=== PATIENT | male | born 1930 | race Caucasian/White ===

== ENCOUNTER 2016-09-12 15:45 | Inpatient (IN) | payer MEDICARE ==
[~2016-09-12] VITALS: Ht 180.3 cm; Wt 108.0 kg
[2016-09-14] MEDS ORDERED: LASIX DPS20 MG PO (13:49)
[2016-09-14] MEDS ORDERED: PROSCAR DPS5 MG PO (13:49)
[2016-09-14] MEDS ORDERED: TERAZOSIN10 MG PO (13:49)
[2016-09-14] MEDS ORDERED: PROTONIX40 MG PO (13:49)
[2016-09-14] MEDS ORDERED: VITAMIN D1000 UNI1 PO (13:50)
[2016-09-14] MEDS ORDERED: ZOCOR DPS20 MG PO (13:50)
[2016-09-14] MEDS ORDERED: IRON325 M1 PO (13:51)
[2016-09-14] MEDS ORDERED: [UNRECOGNIZED DRUG - OTHER] OU (13:51)
--- NOTE | 2016-09-17 08:46 | CO ---
ADMIT: 09/12/2016 RM/LOC: 414 [facility] MR#: [id number] [address] [facility] [address] [place], [place] [id number] OZZY YBARRA [facility] [address] [place] [address] Consultation SEX: M AGE: 86 : 1930 DATE OF CONSULTATION: 09/12/2016 ATTENDING PHYSICIAN: Michael Chase CONSULTING PHYSICIAN: Nate Trinidad MD PROBLEM: Gross hematuria. HISTORY OF PRESENT ILLNESS: This 86-year-old gentleman was transferred to the emergency room at [facility] by the [facility] for evaluation of gross hematuria. Approximately 1 week ago, he underwent cystoscopy and since then has had gross painless hematuria. He underwent repeat cystoscopy today which did reveal obstructive trilobar prostatic enlargement with bladder calculi. According to the patient, in June of this year in the [facility] in [place], an abdominal and pelvic CT scan was performed revealing what sounds to be an abdominal aortic aneurysm along with a renal mass. He is not sure which kidney the mass was on and does not know whether this was a solid or cystic mass. He has had no previous urologic surgery and denies recurrent urinary tract infections. Prior to this, he had been voiding with slight hesitancy and strain to void but no feeling of incomplete emptying. There has been no nausea or vomiting. PAST MEDICAL HISTORY: MEDICATIONS: Please see list. ALLERGIES: HE IS NOT SURE OF. OPERATION: He is not sure of. REVIEW OF SYSTEMS: Please see list. FAMILY HISTORY: Negative for urologic problems. SOCIAL HISTORY: He does not smoke. PHYSICAL EXAMINATION: GENERAL: This is elderly 86-year-old, in no acute distress. HEENT: Unremarkable. NECK: Supple without adenopathy. ABDOMEN: Soft, without masses or tenderness throughout. GENITOURINARY: Penis was normal with an indwelling Hoyos catheter and grossly bloody urine. RECTAL: Deferred. EXTREMITIES: Had full range of motion without deformity. NEUROLOGIC: He is grossly intact. ADMIT: 09/12/2016 RM/LOC: 414 [facility] MR#: [id number] [address] [facility] [address] [place] [phone] OZZY YBARRA [facility] [address] [place] [address] Consultation SEX: M AGE: 86 : 1930 ASSESSMENT: Gross painless hematuria with a history of prostatic enlargement, bladder calculi, and a renal mass, all of which could be the cause of the gross hematuria. PLAN: I would switch the catheter out to a #24-Nigerian, 30 mL, three-way Hoyos catheter and we will place him to continuous bladder irrigation. An abdominal and pelvic CT scan will be obtained with contrast in the morning to help evaluate the upper tracts for renal masses. Thank you for allowing us to assist you in the care of Mr. Ybarra and we will follow along with you. Nate Trinidad MD/ brent JOB #: [id number] CC: Michael Chase, Attending Physician Michael Chase, Family Physician
--- NOTE | 2016-09-18 07:57 | HP ---
ADMIT: 09/12/2016 RM/LOC: 414 [facility] MR#: [id number] 26[address] [facility] [address] [place], [place] [phone] OZZY CARVALHO [facility] [address] [place] [address] History and Physical SEX: M AGE: 86 : 1930 DATE OF SERVICE: CHIEF COMPLAINT: Blood in urine. HISTORY OF PRESENT ILLNESS: The patient is an 86-year-old white male, who is normally followed by [place] [facility]. Over the past week, he has been having a workup for bladder and kidney problems. He states that he had a bladder scope approximately 1 week ago through the [place]. After this bladder scope, he has been having significant hematuria over the past week. When he talked to his [facility] physicians about this, they told him to come in to be seen today. [facility] with complaints of continued heavy hematuria along with dizziness, weakness, and dyspnea on exertion. [facility] the [facility] today and had some blood work done, which showed a hemoglobin of 7.0. His last hemoglobin done about a month ago had been 10. Because of his significant anemia and symptoms of weakness, dizziness, and fatigue, he was sent into the emergency room here at [facility] for evaluation. Apparently, the [facility] [place] [facility] and could not accept this patient in transfer. 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 MEDICATIONS: Current med list include: 1. Acetaminophen 325 mg 2 tabs q.4 hours as needed. 2. Lasix 40 mg alternating with 20 mg daily every other day. 3. Aspirin 81 mg daily. 4. Carboxymethylcellulose 0.5% one drop each eye every 2 hours while awake. 5. Cholecalciferol 2000 units daily. 6. Finasteride 5 mg daily. 7. Mineral oil one drop each eye three times daily as needed. 8. Oxycodone 5 mg one tab q.4 hours as needed. 9. Simvastatin 20 mg daily. 10.Terazosin 10 mg daily. 11.Omeprazole 20 mg daily. 12.Etodolac 400 mg daily as needed. ALLERGIES: PENICILLIN AND IODINATED CONTRAST. PAST SURGICAL HISTORY: The patient has had previous bilateral cataract surgery, pacemaker placement, right total knee replacement, bilateral inguinal hernia repairs, abdominal aortic aneurysm repair, previous appendectomy. SOCIAL HISTORY: The patient currently lives by himself in [place], [place]. He is . He does have a daughter that checks in on him periodically. He is a previous smoker who quit approximately 15 years ago. Occasional alcohol use. Previous employment included shop welder, power plant electrician, and [employer]. ADMIT: 09/12/2016 RM/LOC: 414 [facility] MR#: [id number] [address] [place] [id number] [place] [address] History and Physical SEX: M AGE: 86 : 1930 REVIEW OF SYSTEMS: HEENT: The patient denies visual changes, ear pain, sore throat, or difficulty swallowing. CARDIAC: No chest pains or palpitations at this time. Does have previous history of pacemaker placement and lower extremity edema. RESPIRATORY: No shortness of breath, cough, or wheezing. No prior lung problems. Remote history of smoking. GASTROINTESTINAL: No current nausea, vomiting, abdominal pain, diarrhea, or constipation. GENITOURINARY: Severe hematuria over the past week. Apparently, has had recent evaluation of prostate and bladder. History of enlarged prostate and kidney mass. ENDOCRINE: No history of diabetes or thyroid problems. NEUROLOGIC: No history of strokes or seizures. MUSCULOSKELETAL: Significant history of bilateral knee pain and osteoarthritis, currently no unusual muscle or joint aches and pains. SKIN: Currently no jaundice, cyanosis, or rash. He does have significant pallor to his skin. PHYSICAL EXAMINATION: VITAL SIGNS: Most recent vitals from the [place] include a temperature of 99.4, pulse 68 and regular, respiratory rate 11, blood pressure 140/54, O2 saturations 99% on room air. GENERAL: The patient is alert and oriented. He answers questions appropriately. Does not appear to be in acute distress. HEENT: Wears hearing aids in his ears. Pupils equal, round, and reactive to light and accommodation bilaterally. Oropharynx moist without erythema or tonsillar enlargement. NECK: Supple without lymphadenopathy or JVD. No thyroid enlargement or tenderness. LUNGS: Clear bilaterally without wheezes, rhonchi, or rales. HEART: Regular rate and rhythm without murmur, rub, or gallop. ABDOMEN: Obese, but soft, nontender, and nondistended. No masses palpated. Hoyos catheter in place at this time. EXTREMITIES: With 2+ edema in the lower extremities. Moves all extremities equally. NEUROLOGIC: No focal deficits. LABORATORY AND X-RAY DATA: No labs done here in the hospital at [facility], but he did have some lab done over at the [facility] earlier today. This included a CBC with white count of 5.0, hemoglobin 7.0, platelet count 60. ASSESSMENT: 1. Gross hematuria. 2. Significant anemia (hemoglobin currently 7.0). ADMIT: 09/12/2016 RM/LOC: 414 [facility] MR#: [id number] [address] [place] [phone] OZZY CARVALHO [address] [address] History and Physical SEX: M AGE: 86 : 1930 3. History of prostate enlargement. 4. History of renal mass. 5. Bilateral lower extremity edema. PLAN: Hoyos catheter is currently in place. Urology consult has been placed and Dr. Trinidad has seen this patient in consultation. We will transfuse 2 units of packed red blood cells and follow his hemoglobin closely. We will also check a serum iron as there is an apparent history of iron deficiency and patient is not currently on iron. We will plan on heme testing his stools due to his anemia. Dr. Trinidad of Urology plans to do continuous bladder irrigation and will also plan on a CT scan of the abdomen and pelvis to be done tomorrow. Michael Chase MD/ brent JOB #: [id number] CC: Michael Chase, Attending Physician Michael Chase, Family Physician
--- NOTE | 2016-09-21 18:52 | ER ---
ADMIT: 09/12/2016 RM/LOC: 414 [facility] MR#: [id number] 26[address] [facility] [address] [place], [place] [phone] DEVEN, OZZY LARRY [facility] [address] [place] [address] Emergency Room Report SEX: M AGE: 86 : 1930 DATE: 09/12/2016 ADDENDUM: HISTORY OF PRESENT ILLNESS: This patient comes to the ER from the [facility]. He went to the [facility] today because he was short of breath and it has been for the last 2 days. He states he had some kind of a urologic procedure done a week ago and now has a catheter and has a lot of blood in the catheter. When he went to the [facility] today, they checked his hemoglobin and it was 7.0. He denies any cough and really denies any abdominal pain, only complaint is weakness. PHYSICAL EXAMINATION: LUNGS: Clear. ABDOMEN: Soft. VITAL SIGNS: His O2 saturation is 98% on room air. GENITOURINARY: He does have a leg bag with bright red blood in the bag. Hemoccult was negative for blood. IV of normal saline was started. He was given a liter of bolus. I typed and crossed for 2 units. I did have the blood work from the [facility] that showed the hemoglobin was 7, and a normal CMP. I did consult with Dr. Chase, who is in city call, the [facility] was on diversion and was unable to accept the patient. I then also spoke with Dr. Trinidad, the urologist, who came in and examined the patient. DIAGNOSES: 1. Anemia. 2. Hematuria. 3. Shortness of breath. Please see my T-sheet and Dr. Chase's and Dr. Trinidad's dictation for further treatments. ANKITA Allen / Arun Hinojosa MD / brent JOB #: [id number] CC: Michael Chase MD, Attending Physician Michael Chase MD, Family Physician
--- NOTE | 2016-10-21 12:00 | DS ---
ADMIT: 09/12/2016 RM/LOC: 414 [facility] MR#: [id number] [address] [facility] [address] [place], [place] [address] OZZY CARVALHO [facility] [address] [place] [address] General Discharge Summary SEX: M AGE: 86 : 1930 ADMISSION DATE: 09/12/2016 DISCHARGE DATE: 09/13/2016 PRIMARY DIAGNOSES: 1. Gross hematuria. 2. Anemia. 3. Prostate enlargement. 4. History of renal mass. 5. Lower extremity edema. 6. Iron deficiency. CONSULTATIONS DURING THIS HOSPITALIZATION: Urology - R Ravin Trinidad MD HISTORY OF PRESENT ILLNESS: The patient is an 86-year-old white male, who is normally followed at the [facility]. Over the past week, he has been having a workup for bladder and kidney problems. He states that he had a bladder scope approximately 1 week prior to this hospitalization and this was done through the [facility]. After the bladder scope, he had been having significant hematuria. He talked to one of his [facility] providers about this, and they told him to come into the emergency room for evaluation. He had continued heavy hematuria along with some dizziness weakness and dyspnea on exertion. When evaluated at the [facility] clinic, he had a hemoglobin of 7.0. Last hemoglobin prior to this had been about a month ago and had been around 10. Because of his significant anemia and symptoms of weakness, dizziness, fatigue, and gross hematuria, he was admitted to the hospital as a city call patient to my service. LABORATORY AND X-RAY: Prior labs done at the [facility] on 09/12/2016, included a CBC with a white count of 5.0, hemoglobin 7.0, and platelet count 60. Pertinent labs and scans done during the hospitalization included a CT scan of the abdomen and pelvis, which showed bilateral nephrolithiasis without evidence of obstructive uropathy. Cholelithiasis was noted. There was a 4.9 cm right exophytic complex cystic mass in the right kidney. 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 Prostate gland enlargement seen as well. Labs done on 09/13 included a sodium of 142, potassium 3.7, BUN 15, creatinine 1.3, glucose 135, total bilirubin 1.1, alkaline phosphatase 61, AST 16, ALT 13, and iron level 22. PSA 1.59. White blood cell count on 09/13/2016 was 4.5, hemoglobin 7.6, and platelet count 71. HOSPITAL COURSE: The patient was admitted on 09/12/2016, with diagnosis of gross hematuria with right kidney mass and prostate enlargement. He was found to have significant anemia and was given 2 units of packed red blood cells at time of admission. Urology was asked to see this patient in consultation. Hoyos catheter was placed to continuous bladder irrigation. A CT scan of the abdomen and pelvis was ordered by Dr. Ravin Triniadd. They showed some nephrolithiasis, cholelithiasis, and an exophytic complex cyst in the right kidney. Serum iron level was ordered and was found to be low. Iron supplementation was initiated. Hemoglobin was followed closely. On 09/13/2016, the [facility] in [place] did have beds available and were willing to ADMIT: 09/12/2016 RM/LOC: 414 [facility] MR#: [id number] [address] [place] [phone] [place] [address] General Discharge Summary SEX: M AGE: 86 : 1930 accept this patient in transfer for further evaluation of his gross hematuria and right kidney mass. He was therefore set up to be transferred to the [facility] in stable condition on 09/13/2016. DISCHARGE INSTRUCTIONS: The patient was discharged to the [facility] in [place] on 09/13/2016. The patient was very stable at time of transfer. MEDICATIONS: At time of transfer included: 1. Lasix 20 mg every other day along with Lasix 40 mg on alternating days. 2. Proscar 5 mg daily. 3. Omeprazole 20 mg daily. 4. Terazosin 10 mg daily. 5. Vitamin D 2000 units daily. 6. Zocor 20 mg daily. 7. Celluvisc 1% daily. 8. Iron 325 mg b.i.d. He was transferred to the care of the [facility] physicians for further urologic workup. Michael Chase MD/ brent JOB #: [id number] CC: Michael Chase MD, Attending Physician Michael Chase MD, Family Physician
== END 2016-09-13 14:45 | DRG 696 ==
LOC: ER 15:45 → 4PCU 17:00
PROVIDERS: ADMIT Family Medicine
PROC: 30233N1 Transfusion of Nonautologous Red Blood Cells into Peripheral Vein, Percutaneous Approach (ICD-10-PCS; principal; 2016-09-12)
DX: R31.0 Gross hematuria (principal); D62 Acute posthemorrhagic anemia; N13.8 Other obstructive and reflux uropathy; E61.1 Iron deficiency; K21.9 Gastro-esophageal reflux disease without esophagitis; R60.0 Localized edema; N40.1 Benign prostatic hyperplasia with lower urinary tract symptoms; N21.0 Calculus in bladder; N28.9 Disorder of kidney and ureter, unspecified; M19.90 Unspecified osteoarthritis, unspecified site; E78.00 Pure hypercholesterolemia, unspecified; Z79.82 Long term (current) use of aspirin; Z96.651 Presence of right artificial knee joint; Z87.891 Personal history of nicotine dependence; Z95.0 Presence of cardiac pacemaker